=== PATIENT | male | born 1990 | race Caucasian/White ===

== ENCOUNTER 2019-04-18 11:06 | Outpatient (CLI) | payer BC, SELFPAY ==
--- NOTE | 2019-04-18 11:04 | DI.RAD_ITS ---
SYMPTOM/DIAGNOSIS: PAIN RIGHT KNEE: No bony or joint abnormality is seen.
== END 2019-04-18 11:26 ==
PROVIDERS: PCP Family Medicine; Visit Provider Physician Assistant Surgical
DX: S89.90XA Unspecified injury of unspecified lower leg, initial encounter (principal)
CPT/HCPCS: 73560